=== PATIENT | female | born 1990 | race African-American/Black ===

== ENCOUNTER → 2023-04-23 | Outpatient (CLI) | payer OTHER ==
[~2023-04-23] MED LIST: METHACHOLINE KIT INH ONE
== END ==
LOC: M CARPUL 07:20
PROVIDERS: ATTEND Internal Medicine Pulmonary Disease
DX: R06.02 Shortness of breath (principal)
CPT/HCPCS: 94070; J7674

== ENCOUNTER → 2023-05-24 | Outpatient (CLI) | payer OTHER ==
[~2023-05-24] MED LIST changes: +DIPH-435 PO; +ISOVUE-370 76% 100ML VIAL As Ordered ONE; -METHACHOLINE KIT INH ONE; +PEPC1TAB5 PO; +PRED20TA PO
== END ==
LOC: M RAD 07:39
PROVIDERS: ATTEND Family Medicine
DX: J18.9 Pneumonia, unspecified organism (principal)
CPT/HCPCS: 71260; Q9967

== ENCOUNTER 2023-05-27 00:03 | Emergency (ER) | payer OTHER ==
[~2023-05-27] VITALS: Ht 170.2 cm; Wt 66.2 kg
[2023-05-27] MEDS ORDERED: NS 1,000 ML IV ONE (01:15)
[2023-05-27] MEDS ORDERED: diphenhydrAMINE 50MG/ML VIAL IV ONE (01:15)
[2023-05-27] MEDS ORDERED: methylPREDNISolone 125MG 2ML VIAL IV ONE (01:15)
[2023-05-27] MEDS ORDERED: FAMOTIDINE 20MG/2ML VIAL IVP ONE (01:15)
[2023-05-27] MEDS ORDERED: PEPC1TAB5 PO (02:14)
[2023-05-27] MEDS ORDERED: DIPH-435 PO (02:14)
[2023-05-27] MEDS ORDERED: PRED20TA PO (02:14)
[2023-05-27 03:09] VITALS: BP 130/80; TEMP 97.9; O2SAT 97
== END 2023-05-27 03:11 | disposition home or self-care (01) ==
LOC: M ED 00:03
DX: Z91.041 Radiographic dye allergy status (principal); J12.89 Other viral pneumonia; Z79.52 Long term (current) use of systemic steroids; Z79.899 Other long term (current) drug therapy; Z88.9 Allergy status to unspecified drugs, medicaments and biological substances
CPT/HCPCS: 96361; 96374; 96375; 99283; J1200; J2930; S0028